=== PATIENT | male | born 1955 | race Caucasian/White ===

== ENCOUNTER 2020-04-05 11:23 | Day surgery (SDC) | payer BC, MEDICAID | END 2020-04-05 11:55 | disposition home or self-care (01) | LOC: GI LAB 11:23 | PROVIDERS: ATTEND Internal Medicine Gastroenterology | DX: K80.50 Calculus of bile duct without cholangitis or cholecystitis without obstruction (principal); Z53.8 Procedure and treatment not carried out for other reasons ==

== ENCOUNTER 2020-05-09 14:20 | Day surgery (SDC) | payer BC, MEDICAID ==
[2020-05-09 14:45] VITALS: BP 149/86
[2020-05-09] MEDS ORDERED: fentaNYL/PF 50MCG/1 ML 2ML syringe ONE (15:01)
[2020-05-09] MEDS ORDERED: diphenhydrAMINE 50 mg/ml inj ONE (15:01)
[2020-05-09] MEDS ORDERED: MIDAZolam 5mg/5ml vial ONE (15:01)
[2020-05-09] MEDS ORDERED: iohexol 300 MG/1 ML 50ml polymer ONE (15:02)
[2020-05-09] MEDS ORDERED: glucagon, human recombinant 1mg kit ONE (15:02)
[2020-05-09] MEDS ORDERED: LIDOcaine Viscous 15ml cup ONE (15:02)
[2020-05-09] MEDS ORDERED: LISI40TA4 PO (15:09)
[2020-05-09] MEDS ORDERED: CARV-50 PO (15:09)
[2020-05-09] MEDS ORDERED: CLOP75TA35 PO (15:10)
[2020-05-09] MEDS ORDERED: METF500T PO (15:12)
[2020-05-09] MEDS ORDERED: AMLO10TA13 PO (15:13)
[2020-05-09] MEDS ORDERED: ATOR40TA PO (15:14)
[2020-05-09] MEDS ORDERED: GLIP5TAB13 PO (15:15)
[2020-05-09 16:04] VITALS: BP 131/72
[2020-05-09 16:13] VITALS: BP 130/70
[2020-05-09 16:23] VITALS: BP 108/67
[2020-05-09 16:33] VITALS: BP 132/58
== END 2020-05-09 16:45 | disposition home or self-care (01) ==
LOC: GI LAB 14:20
PROVIDERS: ATTEND Internal Medicine Gastroenterology
DX: K80.50 Calculus of bile duct without cholangitis or cholecystitis without obstruction (principal); I10 Essential (primary) hypertension; E11.9 Type 2 diabetes mellitus without complications; Z72.89 Other problems related to lifestyle; Z86.73 Personal history of transient ischemic attack (TIA), and cerebral infarction without residual deficits; Z79.899 Other long term (current) drug therapy; Z79.01 Long term (current) use of anticoagulants; Z79.84 Long term (current) use of oral hypoglycemic drugs
CPT/HCPCS: 43260; C1769; J1200; J1610; J2250; J3010; J7040; Q9967; 43235; 99152; A4620